=== PATIENT | male | born 1990 | race Caucasian/White ===

== ENCOUNTER 2024-07-10 09:45 | Emergency (ER) | payer MEDICAID, SELFPAY ==
[2024-07-10 10:12] VITALS: BP 120/77; PULSE 54; RESP 20; TEMP 36.3; O2SAT 98; BMI 29.2
[2024-07-10 10:56] LABS: Basophils % 0.4 %; Eosinophils # 0.1 10^3/uL (0.0-0.8); Eosinophils % 1.2 %; Hematocrit 42.5 % (37-53); Lymphocytes # 2.3 10^3/uL (0.8-4.8); Lymphocytes % 28.8 %; Mean Corpuscular HGB Conc 35.3 g/dL (30-55); Mean Corpuscular Hemoglobin 31.7 pg (27-33); Mean Corpuscular Volume 89.9 fl (82-101); Mean Platelet Volume 9.7 fL (7.4-10.4); Monocytes # 0.5 10^3/uL (0.2-0.9); Monocytes % 6.8 %; Neutrophils % 62.5 %; Nucleated Red Blood Cells % 0 %; Platelet Count 255 10^3/cmm (157-399); Red Blood Count 4.73 10^6/uL (3.85-5.65); Red Cell Distribution Width 12.7 % (12.1-15.1); White Blood Count 7.82 10^3/uL (3.29-11.43)
[2024-07-10 11:16] LABS: Alanine Aminotransferase 17 U/L (0-41); Albumin Level 4.7 g/dL (3.5-5.2); Alkaline Phosphatase 101 U/L (40-130); Anion Gap 13.6 (5-19); Aspartate Amino Transferase 18 U/L (0-40); Blood Urea Nitrogen 11 mg/dL (6-20); Calcium 9.3 mg/dL (8.5-10.5); Carbon Dioxide 30 mmol/L (22-29); Chloride 104 mmol/L (98-107); Creatinine Clr Calc Pharmacy 138.8027; Globulin 2.6 g/dL (1.3-4.6); Glomerular Filtration Rate 97.8 mL/min (90-130); Glucose 113 mg/dL (65-115); Osmolality Calculated 296 mOsm/kg (285-295); Potassium 4.6 mmol/L (3.5-5.1); Sodium 143 mmol/L (136-145); Total Protein 7.3 g/dL (6.6-8.7)
--- NOTE | 2024-07-10 13:19 | W.ED.GIBLEED ---
HPI - GI Bleed General: Chief complaint: GI Bleed Stated complaint: Bloody Stool Time Seen by Provider: 07/10/24 10:37 Source: patient Mode of arrival: ambulatory Limitations: no limitations History of Present Illness: Patient is a 33-year-old male who presents to ED today with complaint of bright red rectal bleeding intermittently over the past 3 years. He states when bleeding first started, it was minimal but over the course of several years it has slowly worsened. He states he will have several days of bright red bleeding that he notices when he wipes and in the toilet followed by several days of no bleeding. He states he occasionally will have some abdominal discomfort but nothing that he rates as severe. No fevers or other systemic symptoms. No known personal or family history of inflammatory bowel disease or colon cancer. He denies any known masses or bulges or hemorrhoids. He is not having any rectal pain or painful defecation. MD complaint: blood on toilet paper, blood streaked stool and gross hematochezia Onset (ago): year(s) Pain Consistency: intermittent Severity: moderate Relieving factors: none Exacerbating factors: none Associated symptoms: Denies abdominal pain (none currently), chills, fever(s), malaise, nausea or vomiting Treatments Prior to Arrival: none Related Data Allergies Allergy/AdvReac Type Severity Reaction Status Date / Time No Known Allergies Allergy Verified 07/10/24 10:18 Review of Systems Const: Denies: fever(s), chills, body aches, fatigue or malaise Card: Denies: chest pain Resp: Denies: dyspnea GI: Reports: hematochezia; Denies: abdominal pain (none currently), nausea, vomiting, hematemesis, coffee ground emesis, pain on defecation, rectal pain, rectal swelling, melena, mucus in stool or white/light colored stool Physical Exam Const: COMMON NORMALS: no acute distress, average body habitus, patient oriented x3, no limitations, healthy appearing, alert and well nourished Resp: COMMON NORMALS: normal respiratory effort and clear to auscultation bilaterally AUSCULTATION: clear to auscultation bilaterally Cardio: COMMON NORMALS: regular rate and regular rhythm RATE: regular rate RHYTHM: regular rhythm GI: COMMON NORMALS: Normal to inspection, nondistended, normoactive bowel sounds present, Soft to palpation, non-tender, No hepatosplenomegaly present and no masses PALPATION: Yes Soft to palpation and Yes No hepatosplenomegaly present Neuro: COMMON NORMALS: patient oriented x3 SENSORIUM/ORIENTATION: Yes alert Course Vital Signs: Vital signs: Vital Signs Temperature 97.4 F L 07/10/24 10:12 Pulse Rate 54 L 07/10/24 10:12 Respiratory Rate 20 H 07/10/24 10:12 Blood Pressure 120/77 07/10/24 10:12 Pulse Oximetry 98 07/10/24 10:12 Oxygen Delivery Me thod Room Air 07/10/24 10:12 MDM - GI Bleed Medical Decision Making Patient appears in no acute distress. His vital signs are stable. His abdomen is nontender. Blood work is unremarkable. Hemoglobin is 15. Symptoms have been intermittent over the past 3 years. Ultimately patient requires referral to GI/general surgery for further evaluation and possible need for colonoscopy. Return ED precautions discussed. I do not see any indication for emergent advanced imaging on today's visit. Medical Records I reviewed the patient's medical records. Lab Data I reviewed the patient's lab results. 07/10/24 10:49 07/10/24 10:49 Laboratory Results WBC 7.82 10^3/uL (3.29-11.43) 07/10/24 10:49 RBC 4.73 10^6/uL (3.85-5.65) 07/10/24 10:49 Hgb 15.00 g/dL (11.27-16.99) 07/10/24 10:49 Hct 42.5 % (37-53) 07/10/24 10:49 MCV 89.9 fl (82-101) 07/10/24 10:49 MCH 31.7 pg (27-33) 07/10/24 10:49 MCHC 35.3 g/dL (30-55) 07/10/24 10:49 RDW 12.7 % (12.1-15.1) 07/10/24 10:49 Plt Count 255 10^3/cmm (157-399) 07/10/24 10:49 MPV 9.7 fL (7.4-10.4) 07/10/24 10:49 Neut % (Auto) 62.5 % 07/10/24 10:49 Lymph % (Auto) 28.8 % 07/10/24 10:49 [place] % (Auto) 6.8 % 07/10/24 10:49 Eos % (Auto) 1.2 % 07/10/24 10:49 Baso % (Auto) 0.4 % 07/10/24 10:49 Neut # (Auto) 4.90 10^3/uL (1.8-7.7) 07/10/24 10:49 Lymph # (Auto) 2.3 10^3/uL (0.8-4.8) 07/10/24 10:49 [place] # (Auto) 0.5 10^3/uL (0.2-0.9) 07/10/24 10:49 Eos # (Auto) 0.1 10^3/uL (0.0-0.8) 07/10/24 10:49 Baso # (Auto) 0.0 10^3/uL (0.0-0.1) 07/10/24 10:49 Nucleated RBC % (auto) 0 % 07/10/24 10:49 Nucleated RBCs # 0.0 /100WBC 07/10/24 10:49 Sodium 143 mmol/L (136-145) 07/10/24 10:49 Potassium 4.6 mmol/L (3.5-5.1) 07/10/24 10:49 Chloride 104 mmol/L (98-107) 07/10/24 10:49 Carbon Dioxide 30 mmol/L (22-29) H 07/10/24 10:49 Anion Gap 13.6 (5-19) 07/10/24 10:49 BUN 11 mg/dL (6-20) 07/10/24 10:49 Creatinine 0.9 mg/dL (0.7-1.2) 07/10/24 10:49 GFR Calculation 97.8 mL/min (90-130) 07/10/24 10:49 Glucose 113 mg/dL (65-115) 07/10/24 10:49 Calculated Osmolality 296 mOsm/kg (285-295) H 07/10/24 10:49 Calcium 9.3 mg/dL (8.5-10.5) 07/10/24 10:49 Total Bilirubin 1.0 mg/dL (0.15-1.2) 07/10/24 10:49 AST 18 U/L (0-40) 07/10/24 10:49 ALT 17 U/L (0-41) 07/10/24 10:49 Alkaline Phosphatase 101 U/L (40-130) 07/10/24 10:49 Total Protein 7.3 g/dL (6.6-8.7) 07/10/24 10:49 Albumin 4.7 g/dL (3.5-5.2) 07/10/24 10:49 Globulin 2.6 g/dL (1.3-4.6) 07/10/24 10:49 No radiology studies performed this visit Discharge Plan Discharge Patient Disposition: Home Clinical Impression: Bright red blood per rectum Condition: Stable Discharge Orders: Discharge ED (Routine); Ordered 07/10/24 Ordered By: Inge Matos Patient Instructions: Rectal Bleeding (ED) Activity Restrictions/Additional Instructions: As we discussed, I will have case management reach out to you to set you up with general surgery for further evaluation of your GI bleeding and evaluate you for the need for colonoscopy. You may return to the emergency department for worsening rectal bleeding, lightheadedness/dizziness/passing out episodes, severe abdominal pain, fevers, generally feeling worse or unwell, or any other concerns you may have. Coding Level of Care Code ED [employer] for Pete Leach
[2024-07-10 13:46] VITALS: BP 133/81; PULSE 56; O2SAT 99
--- NOTE | 2024-07-10 14:16 | DCPLANNER ---
messaged gen surg for er f/u
== END 2024-07-10 13:47 | disposition home or self-care (01) ==
PROVIDERS: Emergency Provider Physician Assistant
DX: K62.5 Hemorrhage of anus and rectum (principal)
CPT/HCPCS: 36415; 80053; 85025; 99283

== ENCOUNTER 2024-07-18 18:20 | Outpatient (CLI) | payer MEDICAID, SELFPAY | END 2024-07-18 18:21 | disposition home or self-care (01) | LOC: LAB 07-28 06:27 | PROVIDERS: Visit Provider Surgery | DX: K92.2 Gastrointestinal hemorrhage, unspecified (principal) | CPT/HCPCS: 83630; 83993 ==

== ENCOUNTER 2024-07-20 09:19 | Day surgery (SDC) | payer MEDICAID, SELFPAY ==
[2024-07-20 09:34] VITALS: BP 118/73; PULSE 64; RESP 18; TEMP 36.4; O2SAT 97
[2024-07-20 09:35] VITALS: BMI 29.2
[2024-07-20] MEDS: sodium chloride 0.9% 1,000 ML 30 ML IV (09:38)
--- NOTE | 2024-07-20 10:21 | P.HPUD_ITS ---
Surgery/Procedure H&P Update DATE OF PROCEDURE: July 20, 2024 DATE H&P PERFORMED: 07/12/24 H&P UPDATE INFORMATION: I have reviewed H&P completed within last 30 days, I have examined patient prior to procedure, No changes to prior documentation and H&P is in [facility] EMR on date indicated PLANNED PROCEDURE: Operation Date: 07/20/24 10:35 Proposed Procedures p EGD 93071, 53973, G0105, K62.5, K92.2(Not Applicable) - León Baumann MD s Colonoscopy(Not Applicable) - León Baumann MD
--- NOTE | 2024-07-20 10:29 | ANES.PREANE2 ---
Pre-Anesthetic Assessment Height/Weight: Height 5 ft 11 in Weight 210 lb Temp Pulse Resp BP Pulse Ox O2 Del Method 97.5 F L 64 18 118/73 97 Room Air 07/20/24 09:34 07/20/24 09:34 07/20/24 09:34 07/20/24 09:34 07/20/24 09:34 07/20/24 09:34 Preop Diagnosis: Rectal bleeding Operation Date: 07/20/24 10:35 Proposed Procedures p EGD 33619, 95379, G0105, K62.5, K92.2(Not Applicable) - León Baumann MD s Colonoscopy(Not Applicable) - León Baumann MD Was Beta Colton taken within 24 hours: N/A Was Clonidine taken within 24 hours: N/A Last intake: Intake Last Liquid Date 07/19/24 Last Liquid Time 19:00 Last Solid Date 07/18/24 Social No alcohol and No tobacco Exam alert, oriented x 3, clear to auscultation bilaterally and regular rate & rhythm Airway Submandibular: within normal limits Cervical ROM: within normal limits Mallampati: Class I Dentition: full Comments: Comments: Large pichardo Anesthetic Plan ASA status: 1 Anesthesia: MAC Other: No prior issues with anesthesia Completed bowel prep Patient has been experiencing rectal bleeding Denies any cardiac or pulmonary issues METs greater than 4 Plan for MAC anesthetic Medications/Allergies Home Medications Medication Instructions Recorded Confirmed Last Taken Type ondansetron 8 mg disintegrating 8 mg PO Q8H PRN nausea and 07/12/24 07/20/24 Unknown Rx tablet vomiting #3 tabs Allergies Allergy/AdvReac Type Severity Reaction Status Date / Time No Known Allergies Allergy Verified 07/20/24 09:33 Current Medications Generic Name Dose Route Start Last Admin Trade Name Freq PRN Reason Stop Dose Admin Sodium Chloride 1,000 mls @ 30 mls/hr 07/20/24 09:30 07/20/24 09:38 Sodium Chloride 0.9% IV 30 mls/hr .Q24H [place]ERETTE Administration PFSH Anesthesia Social History (Updated 07/12/24 @ 10:35 by KIEL Rivera) Smoking and tobacco/nicotine status: current every day tobacco/nicotine user (chewing tobacco) smokeless tobacco Smokeless tobacco user: chewing tobacco Alcohol intake: current Alcohol intake frequency: holidays/special occasions only Data Anesthesia Cardiac Studies: No Data to Display
[2024-07-20 11:15] VITALS: BP 109/72; PULSE 49; RESP 12; TEMP 36.1; O2SAT 100
[2024-07-20 11:39] VITALS: BP 112/76; PULSE 46; RESP 18; O2SAT 100
--- NOTE | 2024-07-20 11:43 | ANE.PACU2 ---
Inpatient post-anesthesia follow up: Airway intact: Yes Vital signs: Temperature 97 F Pulse Rate 46 Respiratory Rate 18 Blood Pressure 112/76 Pulse Oximetry 100 Oxygen Delivery Me thod Room Air Oxygen Flow Rate Fraction of Inspir ed Oxygen Hydration adequate: Yes Nausea and vomiting: No Pain level: 1 Mental status: Baseline
== END 2024-07-20 11:43 | disposition home or self-care (01) ==
PROVIDERS: Visit Provider Surgery
PROC: 0DJ08ZZ Inspection of Upper Intestinal Tract, Via Natural or Artificial Opening Endoscopic (ICD-10-PCS; CPT 43235; principal; 2024-07-20 10:35)
PROC: 0DJD8ZZ Inspection of Lower Intestinal Tract, Via Natural or Artificial Opening Endoscopic (ICD-10-PCS; CPT 45378; 2024-07-20 10:35)
DX: K62.5 Hemorrhage of anus and rectum (principal); K62.89 Other specified diseases of anus and rectum; K29.70 Gastritis, unspecified, without bleeding; F17.220 Nicotine dependence, chewing tobacco, uncomplicated
CPT/HCPCS: 43239; 45380; 88305; J2704; J7030